=== PATIENT | male | born 1965 | race Hispanic/Latino ===

== ENCOUNTER → 2019-04-10 | Day surgery (SDC) | payer OTHER ==
[~2019-04-10] MED LIST: ALLOPURINOL100 MG PO; FENTANYL CITRATE/PF 100MCG/2 ML INJ ONE; HYOSCYAMINE 0.125 MG TAB ONE; INDOMETHACIN50 MG PO; MIDAZOLAM HCL 2 MG/2 ML VIAL ONE; PROPOFOL IV EMULSION 10 MG/ML 50 ML VIAL ONE; SYMBICORT 16010.2 GM INH; VENTOLIN HFA18 GM INH
--- OUTSIDE RECORDS SUMMARY | 2019-04-10 12:28 | XMS REPORT ---
Author Author [facility] Address Unknown Phone Unavailable Care Team Providers Care Sample Selector Name Role Phone Unavailable Unavailable Payers Payer Name Policy Type Policy Number Effective Date Expiration Date Problems This patient has no known problems. Allergies, Adverse Reactions, Alerts Allergy Name Allergy Type Status Severity Reaction(s) Onset Date Inactive Date Treating Clinician Comments No Known Allergies DA Active U 2018-07-16 00:00:00 No Known Allergies DA Active U 2018-05-31 00:00:00 Medications This patient has no known medications. Results Test Description Test Time Test Comments Text Results Atomic Results Result Comments COMPREHENSIVE METABOLIC PANEL 2018-07-16 16:14:00 SODIUM (test code=NA) 141 mmol/L 136-145 POTASSIUM (test code=K) 3.6 mmol/L 3.5-5.1 CHLORIDE (test code=CL) 105.0 mmol/L 98-107 CARBON DIOXIDE (test code=CO2) 22.6 mmol/L 21-32 GLUCOSE (test code=GLU) 88 mg/dL 70-110 BLOOD UREA NITROGEN (test code=BUN) 8 mg/dL 7-18 GLOMERULAR FILTRATION RATE (test code=GFR) 81.0 >60 Unit of measure: mL/min/1.73 [id number] Range:Healthy Adults >90 mL/min/1.73 m2 For Chronic Kidney Disease: Stage II Mild Decrease in GFR 60-90 Stage III Moderate Decrease in GFR 30-59 Stage IV Severe Decrease in GFR 15-29 Stage V Kidney Failure <15 CREATININE (test code=CREAT) 0.97 mg/dL 0.55-1.30 TOTAL PROTEIN (test code=PROT) 7.2 g/dL 6.4-8.2 ALBUMIN (test code=ALB) 3.7 g/dL 3.4-5.0 GLOBULIN (test code=GLOB) 3.5 g/dL 2.2-4.2 ALBUMIN/GLOBULIN RATIO (test code=A/G) 1.1 0.7-2.0 CALCIUM (test code=CA) 8.8 mg/dL 8.2-10.1 BILIRUBIN TOTAL (test code=BILT) 0.30 mg/dL 0.2-1.00 SGOT/AST (test code=AST) 28.0 U/L 15-37 SGPT/ALT (test code=ALT) 29.0 U/L 12-78 Please note new normal range. ALKALINE PHOSPHATASE TOTAL (test code=ALKP) 76 U/L 46-116 PROTHROMBIN [id number] 16:00:00* Test Item Value Reference Range Comments PROTHROMBIN TIME PATIENT (test code=PTP) 10.4 secs 10.1-12.5 INTERNATIONAL NORMAL RATIO (test code=INR) 0.92 <2.0 RECOMMENDED THERAPEUTIC RANGE FOR ORAL ANTICOAGULANTTREATMENT: CONDITION INRProphylaxis of venous thrombosis in 2.0 - 3.0 high-risk medical or surgical patientsTreatment of venous thrombosis 2.0 - 3.0Prevention of embolism 2.0 - 3.0Prevention of recurrent embolism, or 3.0 - 4.5 patients with mechanical prosthetic intravascular valves IS PATIENT ON ANTICOAGULANTS ? [facility] been notified if Patient is on Heparin D rip? NOIf Yes, order CBC, OCCULT BLOOD, PT every other day NTHROMBOPLASTIN TIME [id number] 16:00:00* Test Item Value Reference Range Comments PTT ACTIVATED (test code=APTT) 25.0 secs 24.9-37.0 IS PATIENT ON ANTICOAGULANTS ? [facility] been notified if Patient is on Heparin D rip? NOIf Yes, order CBC, OCCULT BLOOD, PT every other day NCBC W/AUTO DIFF 2018-07-16 15:44:00* Test Item Value Reference Range Comments WHITE BLOOD CELL (test code=WBC) 6.7 K/mm3 5.7-10.5 RED BLOOD CELL (test code=RBC) 3.96 M/mm3 4.2-5.4 HEMOGLOBIN (test code=HGB) 10.1 g/dL 12-16 HEMATOCRIT (test code=HCT) 31.6 % 37-47 MEAN CELL VOLUME (test code=MCV) 80 fL 80-98 MEAN CELL HGB (test code=MCH) 25.5 pg 27-34 MEAN CELL HGB CONCENTRATION (test code=MCHC) 32.0 g/dL 30.8-34.1 RED CELL DISTRIBUTION WIDTH (test code=RDW) 17.5 % 11-16 PLT (test code=PLT) 224 K/mm3 130-400 MEAN PLATELET VOLUME (test code=MPV) 11.7 fL 8.9-12.1 NEUTROPHIL % (test code=NT%) 62.6 % 45-70 LYMPHOCYTE % (test code=LY%) 20.6 % 20-40 MONOCYTE % (test code=MO%) 7.6 % 3-10 EOSINOPHIL % (test code=EO%) 8.5 % 1-5 BASOPHIL % (test code=BA%) 0.4 % 0.0-1.1 NEUTROPHIL # (test code=NT#) 4.20 K/mm3 2.00-7.50 LYMPHOCYTE # (test code=LY#) 1.38 K/mm3 1.50-4.00 MONOCYTE # (test code=MO#) 0.51 K/mm3 0.2-0.8 EOSINOPHIL # (test code=EO#) 0.57 K/mm3 0.04-0.4 BASOPHIL # (test code=BA#) 0.03 K/mm3 0.02-0.10 MANUAL DIFF REQUIRED (test code=MDIFF) NO MANUAL DIFF NUCLEATED RED BLOOD CELL (test code=NRBC) 0 % 0-0
[2019-04-10 17:15] VITALS: BP 134/99
--- NOTE | 2019-04-10 23:14 | Operative Report ---
DATE OF PROCEDURE: 04/10/2019 SURGEON: Jose Vo MD PROCEDURE: EGD with biopsies and a colonoscopy with polypectomy and biopsies. INDICATIONS FOR EGD: Anemia. INDICATIONS FOR COLONOSCOPY: Colorectal cancer screening, anemia. MEDICATIONS: The patient was done under MAC, please see anesthesiologist's note. PROCEDURE IN DETAIL: With the patient in left lateral decubitus position, a flexible fiberoptic Olympus gastroscope was introduced into the esophagus under direct visualization without any difficulty. The esophagus appeared to be within normal limits. The scope was then advanced with ease into the stomach and mucosa overlying the antrum and the body revealed some diffuse erythema and iodc-xj-tngxelln edema and biopsies were obtained and sent to stain for H pylori. A minute polyp was noted in the distal body of the stomach that was partially excised with the cold biopsy forceps. The pylorus was of normal contour and shape and was intubated with ease and the scope was advanced to the second portion of the duodenum. Biopsies were obtained from the proximal second portion as well as the duodenal bulb to rule out sprue. The scope was then withdrawn back into the stomach and retroflexed. The mucosa overlying the fundus and the cardia appeared to be within normal limits. The scope was then straightened out and was subsequently withdrawn. The patient tolerated procedure well. IMPRESSION: 1. Normal esophagus. 2. Gastritis, biopsied. Biopsies sent to stain for Helicobacter pylori. 3. Gastric polyp, distal body, partially excised with cold biopsy forceps. 4. Rule out sprue. PLAN: Follow up histology. Initiate Protonix 40 mg 1 p.o. q.a.m. a.c. PROCEDURE IN DETAIL: The patient was then turned around. After adequate lubrication of the anal canal, a flexible fiberoptic Olympus colonoscope was inserted into the rectum with ease and advanced all the way to the cecum. Diverticular disease was pretty much noted throughout the colon. The mucosa overlying the cecum grossly appeared to be within normal limits. The ileocecal valve appeared lobular and that was biopsied. The scope was then withdrawn slowly. Mucosa overlying the ascending, transverse other than for diverticulosis appeared to be within normal limits. An approximately 1.8 cm sessile flat lesion was noted in the distal descending colon and another approximately 6 mm polyp was also noted in the vicinity of the larger polyp. Both were removed with hot snare polypectomy and a large polypectomy site was hemoclipped x2 and tattooed. The sigmoid colon appeared to be within normal limits other than for diverticular disease. Rectum appeared to be within normal limits. The scope was then retroflexed into the distal rectum. Moderate-sized internal hemorrhoids were noted, none of which was actively bleeding. The scope was then straightened out and was subsequently withdrawn. The patient tolerated the procedure well. IMPRESSION: 1. Pandiverticulosis. 2. Ileocecal valve is somewhat lobular, biopsied. 3. Descending colon polyps x2, removed per hot snare polypectomy with the larger polyp approximately 1.8 cm in size, sessile, snared, hemoclipped x2 and tattooed. 4. Internal hemorrhoids, none actively bleeding. PLAN: Follow up histology. Initiate high-fiber, low-fat diet. Initiate high-fiber supplement. Timing of followup colonoscopy pending pathology report. MD GLADYS Ricci/OTTO /[id number] cc: Héctor Sánchez DO
== END | disposition home or self-care (01) ==
LOC: OR 12:24 → EDSEX 14:30
PROVIDERS: ATTEND Internal Medicine Gastroenterology
DX: D64.9 Anemia, unspecified (principal); D12.4 Benign neoplasm of descending colon; K29.50 Unspecified chronic gastritis without bleeding; K31.7 Polyp of stomach and duodenum; K57.30 Diverticulosis of large intestine without perforation or abscess without bleeding; K64.8 Other hemorrhoids; Z01.810 Encounter for preprocedural cardiovascular examination
CPT/HCPCS: 43239; 45380; 45385; 93005; J2250; J2704; J3010; 44391; 45381

== ENCOUNTER 2020-12-20 15:28 | Inpatient (IN) | payer OTHER ==
[~2020-12-20] VITALS: Ht 167.6 cm; Wt 75.3 kg
[~2020-12-20 15:28] MED LIST changes: -FENTANYL CITRATE/PF 100MCG/2 ML INJ ONE; -HYOSCYAMINE 0.125 MG TAB ONE; -MIDAZOLAM HCL 2 MG/2 ML VIAL ONE; -PROPOFOL IV EMULSION 10 MG/ML 50 ML VIAL ONE
[2020-12-20] MEDS ORDERED: ACETAMINOPHEN 325 MG TAB PO STA (16:29)
[2020-12-20] MEDS ORDERED: SODIUM CHLORIDE 0.9% 50ML 50 ML ONE (17:11)
[2020-12-20] MEDS ORDERED: IOPAMIDOL 370 MG/ML 200 ML INFUS..BTL INJ ONE (17:11)
[2020-12-20] MEDS ORDERED: ACETAMINOPHEN 325 MG TAB ONE (18:23)
[2020-12-20] MEDS: METRONIDAZOLE 500MG/NS 100ML 100 ML IV SCH (18:35)
[2020-12-20] MEDS ORDERED: METRONIDAZOLE 500MG/NS 100ML 100 ML IV SCH (18:45)
[2020-12-20] MEDS ORDERED: METRONIDAZOLE 500MG/NS 100ML 100 ML IV ONE (19:31)
[2020-12-20] MEDS ORDERED: ONDANSETRON HCL INJ 2MG/ML 2ML 2 MG/ML VIAL IV PRN (20:15)
[2020-12-20] MEDS ORDERED: MORPHINE SULFATE INJ 2 MG/ML SYR IV PRN (20:15)
[2020-12-20 22:21] VITALS: BP 125/80
[2020-12-20] MEDS: SODIUM CHLORIDE 0.9% 1000ML 1,000 ML IV SCH (22:27)
[2020-12-20 22:30] VITALS: BP 125/80
[2020-12-20 23:18] VITALS: BP 125/80
[2020-12-21 04:00] VITALS: BP_SYST 118; BP_SYST 134; BP_DIAS 71; BP_DIAS 85
[2020-12-21] MEDS: METRONIDAZOLE 500MG/NS 100ML 100 ML IV SCH ×2 (05:24→16:31)
[2020-12-21 06:33] LABS: BASOPHILS % 0.3 % (0.0-1.0); EOSINOPHILS # (AUTO) 0.2 (0.0-0.4); EOSINOPHILS % 2.3 % (0.0-6.0); HEMATOCRIT 32.3 % (38.2-49.6); HEMOGLOBIN 10.3 g/dL (14.0-18.0); LYMPHOCYTES # (AUTO) 0.7 (1.0-3.2); MEAN CORPUSCULAR HEMOGLOBIN 26.5 pg (28-32); MEAN CORPUSCULAR HGB CONC 31.9 g/dL (31-35); MONOCYTES % 14.9 % (4.4-11.3); NEUTROPHILS % 72.4 % (38.7-80.0); PLATELET COUNT 213 x10e3/uL (140-360); RED BLOOD COUNT 3.89 x10e6/uL (4.3-5.7); RED CELL DISTRIBUTION WIDTH 15.3 % (11.7-14.4)
[2020-12-21 06:54] LABS: ALBUMIN 3.1 g/dL (3.5-5.0); ALBUMIN/GLOBULIN RATIO 0.9 (0.8-2.0); ANION GAP 13.4 mmol/L (8-16); CALCIUM 8.8 mg/dL (8.4-10.2); CREATININE, SERUM 0.99 mg/dL (0.72-1.25); POTASSIUM 3.4 mmol/L (3.5-5.1)
[2020-12-21 07:58] VITALS: BP 104/65
[2020-12-21 08:33] VITALS: BP 104/65
[2020-12-21] MEDS: SODIUM CHLORIDE 0.9% 1000ML 1,000 ML IV SCH ×3 (08:35→22:00)
[2020-12-21 11:59] VITALS: BP 114/76
[2020-12-21] MEDS: PIPERACILLIN/TAZOBACTAM 3.375 GM in SODIUM CHLORIDE 0.9% 50ML 50 ML IV SCH ×2 (14:16→20:00)
[2020-12-21 15:56] VITALS: BP 117/80
[2020-12-21 20:00] VITALS: BP 135/85
[2020-12-22] VITALS (8 sets, daily range): BP systolic 113–134; BP diastolic 80–96
[2020-12-22] MEDS: PIPERACILLIN/TAZOBACTAM 3.375 GM in SODIUM CHLORIDE 0.9% 50ML 50 ML IV SCH ×4 (02:00→20:00)
[2020-12-22 05:23] LABS: BASOPHILS % 0.4 % (0.0-1.0); EOSINOPHILS # (AUTO) 0.3 (0.0-0.4); EOSINOPHILS % 5.8 % (0.0-6.0); HEMATOCRIT 30.8 % (38.2-49.6); HEMOGLOBIN 9.7 g/dL (14.0-18.0); LYMPHOCYTES # (AUTO) 0.9 (1.0-3.2); LYMPHOCYTES % 17.4 % (18.0-39.1); MEAN CORPUSCULAR HEMOGLOBIN 26.2 pg (28-32); MEAN CORPUSCULAR HGB CONC 31.5 g/dL (31-35); MEAN CORPUSCULAR VOLUME 83.2 fL (81-99); MONOCYTES # (AUTO) 0.8 (0.2-0.8); MONOCYTES % 14.9 % (4.4-11.3); NEUTROPHILS # (AUTO) 3.2 (2.1-6.9); NEUTROPHILS % 61.1 % (38.7-80.0); PLATELET COUNT 208 x10e3/uL (140-360); RED CELL DISTRIBUTION WIDTH 15.2 % (11.7-14.4)
[2020-12-22 06:09] LABS: ANION GAP 12.3 mmol/L (8-16); CALCIUM 8.5 mg/dL (8.4-10.2); CREATININE, SERUM 0.93 mg/dL (0.72-1.25); POTASSIUM 3.3 mmol/L (3.5-5.1)
[2020-12-22] MEDS: METRONIDAZOLE 500MG/NS 100ML 100 ML IV SCH ×2 (06:31→17:04)
[2020-12-22] MEDS: SODIUM CHLORIDE 0.9% 1000ML 1,000 ML IV SCH ×2 (08:54→17:02)
[2020-12-23] VITALS (7 sets, daily range): BP systolic 113–133; BP diastolic 72–87
[2020-12-23] MEDS: PIPERACILLIN/TAZOBACTAM 3.375 GM in SODIUM CHLORIDE 0.9% 50ML 50 ML IV SCH ×4 (01:15→20:00)
[2020-12-23] MEDS: SODIUM CHLORIDE 0.9% 1000ML 1,000 ML IV SCH ×4 (02:00→20:15)
[2020-12-23] MEDS: METRONIDAZOLE 500MG/NS 100ML 100 ML IV SCH ×2 (05:36→18:07)
[2020-12-23] MEDS ORDERED: POTASSIUM CHLORIDE 10MEQ EA PO ONE (14:45)
[2020-12-24] MEDS: PIPERACILLIN/TAZOBACTAM 3.375 GM in SODIUM CHLORIDE 0.9% 50ML 50 ML IV SCH ×3 (02:00→14:08)
[2020-12-24] MEDS: SODIUM CHLORIDE 0.9% 1000ML 1,000 ML IV SCH (04:15)
[2020-12-24 05:12] VITALS: BP 136/85
[2020-12-24] MEDS: METRONIDAZOLE 500MG/NS 100ML 100 ML IV SCH (06:09)
[2020-12-24 08:00] VITALS: BP 116/80
[2020-12-24 08:04] VITALS: BP 116/80
[2020-12-24 11:49] LABS: BASOPHILS % 0.5 % (0.0-1.0); EOSINOPHILS # (AUTO) 0.3 (0.0-0.4); EOSINOPHILS % 7.3 % (0.0-6.0); HEMATOCRIT 34.6 % (38.2-49.6); HEMOGLOBIN 10.9 g/dL (14.0-18.0); LYMPHOCYTES # (AUTO) 0.9 (1.0-3.2); LYMPHOCYTES % 20.4 % (18.0-39.1); MEAN CORPUSCULAR HGB CONC 31.5 g/dL (31-35); MEAN CORPUSCULAR VOLUME 82.6 fL (81-99); MONOCYTES # (AUTO) 0.5 (0.2-0.8); MONOCYTES % 10.3 % (4.4-11.3); NEUTROPHILS # (AUTO) 2.7 (2.1-6.9); PLATELET COUNT 267 x10e3/uL (140-360); RED BLOOD COUNT 4.19 x10e6/uL (4.3-5.7)
[2020-12-24 12:10] LABS: ANION GAP 10.6 mmol/L (8-16); CALCIUM 8.6 mg/dL (8.4-10.2); CREATININE, SERUM 0.88 mg/dL (0.72-1.25); POTASSIUM 3.6 mmol/L (3.5-5.1)
[2020-12-24 12:26] VITALS: BP 100/70
[2020-12-24] MEDS ORDERED: POTASSIUM CHLORIDE 10MEQ EA PO ONE (12:30)
[2020-12-24 16:04] VITALS: BP 118/77
[2020-12-24] MEDS ORDERED: CIPRO500 MG PO (18:33)
[2020-12-24] MEDS ORDERED: FLAGYL500 MG PO (18:33)
== END 2020-12-24 19:12 | disposition home or self-care (01) | DRG 392 ==
LOC: FSED 15:34 → ERHOLD 20:07 → MED/SURG3 21:42
DX: K57.92 Diverticulitis of intestine, part unspecified, without perforation or abscess without bleeding (principal); K57.20 Diverticulitis of large intestine with perforation and abscess without bleeding; D64.9 Anemia, unspecified; E87.6 Hypokalemia; K80.20 Calculus of gallbladder without cholecystitis without obstruction; Z20.822 Contact with and (suspected) exposure to COVID-19
CPT/HCPCS: 36415; 74177; 80048; 80053; 80076; 81003; 83735; 85025; 99284; J2270; J2543; J7030; Q9967; U0002